=== PATIENT | female | born 1935 | race Caucasian/White ===

== ENCOUNTER 2017-12-02 11:15 | Day surgery (SDC) | payer MEDICARE, BC ==
[2017-11-29 16:08] VITALS: BMI 23.1
[~2017-12-02 11:15] MED LIST: ISOVUE-370 76%-LOCM 1 ML ONE
[2017-12-02] MEDS ORDERED: Lidocaine 1% PF 5 ML VIAL ONE (12:27)
[2017-12-02] MEDS ORDERED: PROPOFOL 200 MG/20 ML VIAL ONE (12:27)
--- NOTE | 2017-12-02 14:22 | OP ---
DATE OF PROCEDURE: 12/02/2017 PROCEDURE: Esophagogastroduodenoscopy and colonoscopy with biopsy and submucosal injection. PREOPERATIVE DIAGNOSIS: Chronic blood loss anemia. OPERATIVE NOTE: Informed consent was obtained from the patient. She was sedated with total intraven ous anesthesia. The bite block was placed and the endoscope was advanced easily to the second portio n of the duodenum and retroflexion was performed in the stomach. The esophagus was normal. The GE j unction was normal. The stomach was normal including retroflexed views. The pylorus and first and s econd portions of the duodenum were normal. The patient was turned around. Rectal exam was performe d and was normal. The colonoscope was advanced to the cecum where the ileocecal valve and appendicea l orifice were clearly identified. The preparation quality was good. There was looping at the hepat ic flexure that made advancement from the ascending colon to the tip of the cecum somewhat challengin g. There was diverticulosis throughout the colon. 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 Th ere was a 1.6 cm ulcer at the distal ascending colon with heaped up edges, it is highly suggestive of a colon cancer. Biopsies were obtained and a tattoo was marked next to the lesion. This was on the proximal side of a large fold in the distal ascending colon that become more apparent as the scope b ecame more retroflexed in the ascending colon. The remainder of the colonic mucosa was normal. Retr oflexed views in the rectum were normal. IMPRESSION: 1. Normal esophagogastroduodenoscopy. 2. A 1.6 cm ulcer in the distal ascending colon with heaped up edges and smooth base consistent with a colon cancer. This was marked with a tattoo and biopsied. 3. Diverticulosis throughout the colon. 4. Melanosis coli throughout the colon. RECOMMENDATIONS: 1. Await histopathology. 2. Follow up in GI clinic.
--- NOTE | 2017-12-02 17:57 | CT ---
CT ABDOMEN AND PELVIS PERFORMED WITH INTRAVENOUS CONTRAST ENHANCEMENT: HISTORY: Right colon mass found on colonoscopy today. History of hernia repair, cholecystectomy, and hysterec roberto. COMPARISON: CT chest from 01/02/2011. FINDINGS: ABDOMEN: The lung bases show mainly chronic lung changes with some subsegmental atelectasis or scarr ing in both bases. There is a large hiatal hernia noted. This exam was obtained in a slightly late arterial phase. The exam was obtained in a slightly late a rterial phase. No definitive solid masses of the liver are seen. There is a small hypodensity, whic h is subcentimeter in size, in the left lobe, statistically most likely a small cyst. The spleen is within normal limits in size. There is a hypodensity involving the body of the pancreas. It measure s 12 to 13 mm. It is partially visualized on the previous 2010 study. It does not appear to be defi nitely changed. The gallbladder has been removed. Right and left adrenal glands and right and left kidneys are normal in size. There is no significant periaortic or mesenteric adenopathy appreciated. Soft tissue density in the right colon could poten tially be related to the history of a mass. This area occurs in the mid ascending colon. There is s ome air density associated with this, presuming this is an area where there has been a biopsy perform ed. There is no free air demonstrated. There is no air within the colon wall. PELVIS: Some colonic diverticulosis is noted. No adenopathy, mass, or free fluid. There is fairly extensive atherosclerotic change of the aorta and iliac vessels. A right hip prosthe sis is noted. No lytic or blastic bony lesions. IMPRESSION: 1. Chronic lung change. 2. Subcentimeter hypodensity in the left lobe of the liver, statistically most likely a small cyst. 3. Stable cystic lesion involving the body of the pancreas, unchanged since the 2011 study. 4. Apparent right colon mass with what appear to be some post biopsy changes. 5. No evidence for metastatic disease. POS: [facility]
== END 2017-12-02 17:15 | disposition home or self-care (01) ==
LOC: SDC 11:15
PROVIDERS: ATTEND Internal Medicine Gastroenterology
PROC: 0DBK8ZX Excision of Ascending Colon, Via Natural or Artificial Opening Endoscopic, Diagnostic (ICD-10-PCS; principal; 2017-12-02)
PROC: 3E0H8GC Introduction of Other Therapeutic Substance into Lower GI, Via Natural or Artificial Opening Endoscopic (ICD-10-PCS; 2017-12-02)
PROC: 0DJ08ZZ Inspection of Upper Intestinal Tract, Via Natural or Artificial Opening Endoscopic (ICD-10-PCS; 2017-12-02)
DX: C18.2 Malignant neoplasm of ascending colon (principal); D63.0 Anemia in neoplastic disease; K57.30 Diverticulosis of large intestine without perforation or abscess without bleeding; K63.89 Other specified diseases of intestine; F17.200 Nicotine dependence, unspecified, uncomplicated; Z88.2 Allergy status to sulfonamides; Z91.040 Latex allergy status; Z98.890 Other specified postprocedural states
CPT/HCPCS: 36415; 74177; 82378; 82565; 88305; J2001; J2704

== ENCOUNTER 2018-01-14 05:49 | Inpatient (IN) | payer MEDICARE, BC ==
[2018-01-14] MEDS ORDERED: Fentanyl 250 MCG/5 ML VIAL ONE (06:33)
[2018-01-14] MEDS ORDERED: Ketorolac Tromethamine 30 MG/ML VIAL ONE (06:36)
[2018-01-14] MEDS ORDERED: cefOXitin 2 GM VIAL ONE (06:36)
[2018-01-14] MEDS ORDERED: Sodium Chloride 0.9% 100 ML ONE (06:41)
[2018-01-14] MEDS ORDERED: Midazolam HCl 2 mg/2 ml Vial ONE (06:49)
[2018-01-14 06:50] LABS: Hemoglobin 10.7 g/dL (12.0-16.0); Red Blood Cell (RBC) Count 3.99 mill/uL (4.20-5.40)
[2018-01-14 06:51] LABS: Mean Corpuscular HGB CONC 33.4 g/dL (32.0-36.0); Mean Corpuscular Hemoglobin 26.8 pg (27.0-31.0); Mean Corpuscular Volume 80.3 fl (81.0-99.0); RBC Distribution Width 17.4 % (11.5-14.5)
[2018-01-14 06:52] LABS: %Lymphocytes 29.9 % (21.0-51.0); %Neutrophils 58.9 % (42.0-75.0); Platelet Count 338 thou/uL (130-400)
[2018-01-14 06:53] LABS: #Lymphocytes 2.1 thou/uL (1.20-3.40); #Neutrophils 4.1 thou/uL (1.40-6.50); %Basophils 0.7 % (0.0-1.0); %Eosinophils 1.5 % (0.0-10.0); %Monocytes 9.1 % (0.0-10.0)
[2018-01-14 06:54] LABS: #Eosinphils 0.1 thou/uL (0.0-0.7); #Monocytes 0.6 thou/uL (0.11-0.59)
[2018-01-14 07:09] LABS: Anion Gap 16 mmol/L (10-20); BUN (Urea Nitrogen) 22 mg/dL (9.8-20.1); Calc. Creatinine Clearance 34 mL/min (70-130); Calcium 9.5 mg/dL (7.8-10.44); Carbon Dioxide 24 mmol/L (23-31); Chloride 101 mmol/L (98-107); Estimated GFR-MDRD 40; Glucose 98 mg/dL (83-110); Potassium 3.8 mmol/L (3.5-5.1); Sodium 137 mmol/L (136-145)
[2018-01-14] MEDS ORDERED: Lidocaine 2% w/Epinephrine 1:200K 20 ML VIAL ONE (07:10)
[2018-01-14 07:51] LABS: Hemoglobin A1c 5.3 % (4.0-6.0)
[2018-01-14] MEDS ORDERED: hydrALAZINE 20 MG/ML VIAL SLOW IVP PRN (10:35)
[2018-01-14] MEDS ORDERED: Ondansetron HCl/PF 4 MG/2 ML Vial IVP PRN (10:35)
[2018-01-14] MEDS ORDERED: Promethazine HCl 25 MG/ML VIAL IM PRN (10:35)
[2018-01-14] MEDS: Ketorolac Tromethamine 30 MG/ML VIAL IVP SCH ×3 (12:13→23:01)
[2018-01-14] MEDS: Acetaminophen 1,000 MG in Premix Bag 1 BAG IVPB SCH ×3 (12:13→23:01)
[2018-01-14] MEDS: D5 1/2 NS w/20 mEq KCL 1,000 ML IV SCH (12:21)
[2018-01-14] MEDS ORDERED: Bupivacaine HCl 0.5%/Epinephrine 1:200,000/PF 30 ml Vial ONE (13:00)
[2018-01-14] MEDS ORDERED: Esmolol 100 MG/10 ML VIAL ONE (13:27)
[2018-01-14] MEDS ORDERED: PROPOFOL 200 MG/20 ML VIAL ONE (13:27)
[2018-01-14] MEDS ORDERED: Lidocaine 1% PF 5 ML VIAL ONE (13:27)
[2018-01-14] MEDS ORDERED: Glycopyrrolate 0.2 MG/ML 5 ML SYRINGE ONE (13:27)
[2018-01-14 15:54] VITALS: BMI 23.8
[2018-01-14] MEDS ORDERED: Melatonin 3 MG TAB PO PRN (16:04)
[2018-01-14] MEDS: Carvedilol 3.125 MG TAB PO SCH (21:30)
[2018-01-14] MEDS: Losartan 25 MG TAB PO SCH (21:30)
[2018-01-14] MEDS: Enoxaparin Sodium 40 MG/0.4 ML SYRINGE SC SCH (21:30)
[2018-01-14] MEDS: Famotidine 20 MG TAB PO SCH (21:30)
[2018-01-14] MEDS: Famotidine/PF 20 mg/2ml Vial SLOW IVP SCH (23:20)
[2018-01-15] MEDS: D5 1/2 NS w/20 mEq KCL 1,000 ML IV SCH ×3 (03:39→17:47)
[2018-01-15 05:00] LABS: #Basophils 0.1 thou/uL (0.0-0.2); #Eosinphils 0.1 thou/uL (0.0-0.7); #Lymphocytes 1.7 thou/uL (1.20-3.40); #Monocytes 0.7 thou/uL (0.11-0.59); #Neutrophils 4.2 thou/uL (1.40-6.50); %Basophils 1.1 % (0.0-1.0); %Eosinophils 1.2 % (0.0-10.0); %Monocytes 9.9 % (0.0-10.0); %Neutrophils 62.8 % (42.0-75.0); Hemoglobin 8.8 g/dL (12.0-16.0); Mean Corpuscular HGB CONC 33.3 g/dL (32.0-36.0); Mean Corpuscular Hemoglobin 26.6 pg (27.0-31.0); Mean Corpuscular Volume 79.7 fL (78.0-98.0); Mean Platelet Volume 6.8 fL (7.4-10.4); Platelet Count 269 thou/uL (130-400); RBC Distribution Width 17.4 % (11.5-14.5); Red Blood Cell (RBC) Count 3.32 mill/uL (4.20-5.40); White Blood Cell (WBC) Count 6.7 thou/uL (4.8-10.8)
[2018-01-15 05:16] LABS: Anion Gap 12 mmol/L (10-20); BUN (Urea Nitrogen) 18 mg/dL (9.8-20.1); Calc. Creatinine Clearance 42 mL/min (70-130); Calcium 8.3 mg/dL (7.8-10.44); Carbon Dioxide 24 mmol/L (23-31); Chloride 103 mmol/L (98-107); Estimated GFR-MDRD 52; Glucose 103 mg/dL (83-110); Sodium 135 mmol/L (136-145)
[2018-01-15] MEDS: Acetaminophen 1,000 MG in Premix Bag 1 BAG IVPB SCH (05:20)
[2018-01-15] MEDS: Ketorolac Tromethamine 30 MG/ML VIAL IVP SCH ×4 (05:20→23:47)
--- NOTE | 2018-01-15 05:57 | OP ---
DATE OF PROCEDURE: 01/14/2018 PREOPERATIVE DIAGNOSIS: Right colon cancer. POSTOPERATIVE DIAGNOSIS: Right colon cancer. OPERATION PERFORMED: Laparoscopic hand-assisted right hemicolectomy. SURGEON: Nima Dupree M.D. ANESTHESIA: General endotracheal. INDICATIONS: The patient is an 82-year-old, white female. She was diagnosed with right colon cancer at the time of recent colonoscopy, and the lesion was tattooed. This is felt to be in the distal as cending colon near the hepatic flexure. She has received cardiac clearance and presents at this time for laparoscopic hemicolectomy. DESCRIPTION OF OPERATION: Informed consent was obtained. The patient was taken to the operating laura m where general endotracheal anesthesia was obtained with the patient in supine position. Abdomen wa s prepped with ChloraPrep and draped in sterile fashion. A tap block had been placed preoperatively by Anesthesia. Local anesthetic was infiltrated and 5 mm left upper abdominal incision was created through which a r victor m was passed via the peritoneal cavity and pneumoperitoneum established using carbon dioxide up to a pressure of 15 mmHg. A 5 mm trocar was passed through this same incision. Laparoscopic camera wa s passed through this port. Under direct vision, an additional 5 mm port was placed in the left lowe r abdomen. The colon was inspected and the area of the tattoo was found in the distal ascending colon close to t he hepatic flexure. A 7 cm oblique right upper quadrant incision was created. Muscle splitting technique was used to gai n access into the abdominal cavity. The Stefan wound retractor was placed along with the GelPort. Attention was turned to the right colon. The ileocolic pedicle was identified, dissected, divided us ing the LigaSure device. Retroperitoneal dissection was carried laterally to the lateral abdominal w all, over the duodenum, up to the proximal transverse colon. I then mobilized the right colon by inc ising the white line of Toldt, fully mobilized the appendix, right colon, hepatic flexure. When the colon was fully mobilized, it was brought extracorporeally through the wound retractor. Segregated instruments were used while the colon was opened. A double stapled [id number] anastomos is created with the DENVER-75 stapler between the distal ileum and the proximal transverse colon. The r esected segment of the colon was then passed off the field. The anastomosis was buttressed with trinity ral interrupted sutures of 3-0 silk. The mesenteric defect was not closed. The colon was returned t o the abdominal cavity. Laparoscopic evaluation was continued, irrigating the area and aspirating al l irrigant. Hemostasis was meticulous. All ports and instruments removed under direct vision. Pneu moperitoneum was carefully evacuated. The right upper quadrant wound was closed in layers using #1 PDS suture in 2 separate layers. The re mainder of the wound was closed with 3-0 and 4-0 Monocryl. The port sites were closed with 4-0 Monoc ryl subcuticular suture. Dermabond was placed externally. There were no complications. Patient doyle erated the procedure well and was taken to recovery room in stable condition.
[2018-01-15] MEDS: Carvedilol 3.125 MG TAB PO SCH ×2 (08:27→21:46)
[2018-01-15] MEDS: Aspirin 81 mg Enteric Coated Tablet PO SCH (08:28)
[2018-01-15] MEDS: Digoxin 0.125 MG TAB PO SCH (08:28)
[2018-01-15] MEDS ORDERED: Levothyroxine Sodium 112 MCG TAB PO SCH (09:00)
[2018-01-15] MEDS: Famotidine 20 MG TAB PO SCH (21:46)
[2018-01-15] MEDS: Famotidine/PF 20 mg/2ml Vial SLOW IVP SCH (21:46)
[2018-01-15] MEDS: Enoxaparin Sodium 40 MG/0.4 ML SYRINGE SC SCH (21:46)
[2018-01-15] MEDS: Losartan 25 MG TAB PO SCH (21:46)
[2018-01-15] MEDS ORDERED: Acetaminophen 500 MG TAB PO PRN (22:29)
[2018-01-15] MEDS ORDERED: traMADol HCl 50 MG TAB PO PRN ×2 (22:29)
[2018-01-15] MEDS ORDERED: Ibuprofen 600 MG TAB PO PRN (22:29)
--- NOTE | 2018-01-16 00:46 | PRG ---
DATE OF SERVICE: 01/15/2018 SUBJECTIVE: Daniel Vaughan is an 82-year-old female status post laparoscopic right colectomy. S he is doing well, tolerating diet, not having any nausea or vomiting. Her labs are normal. OBJECTIVE: VITAL SIGNS: Stable. LUNGS: Clear to auscultation. CARDIAC: Regular rate and rhythm without murmur or gallop. ABDOMEN: Soft, nontender. The patient has had a bowel movement. ASSESSMENT AND PLAN: Doing well after right colectomy. Plan to advance her diet, saline lock her. Plan to probably discharge her home on .
[2018-01-16] MEDS: Ketorolac Tromethamine 30 MG/ML VIAL IVP SCH ×2 (05:34→12:40)
[2018-01-16] MEDS ORDERED: Levothyroxine Sodium 112 MCG TAB PO SCH (06:00)
[2018-01-16] MEDS: Digoxin 0.125 MG TAB PO SCH (08:09)
[2018-01-16] MEDS: Carvedilol 3.125 MG TAB PO SCH (08:09)
[2018-01-16] MEDS: Aspirin 81 mg Enteric Coated Tablet PO SCH (08:09)
[2018-01-16 11:11] VITALS: TEMP 97.4
[2018-01-16 15:27] VITALS: BP 174/76
--- NOTE | 2018-01-16 19:11 | PRG ---
DATE OF SERVICE: 01/16/2018 SUBJECTIVE: Vital signs are stable and afebrile. No labs today. She is tolerating her diet. She h as had a bowel movement. She is not having nausea or vomiting. Pathology reveals T3 N0 M0 tumor. PHYSICAL EXAMINATION: LUNGS: Clear to auscultation. CARDIAC: Regular rate and rhythm without murmur or gallop. ABDOMEN: Soft, nontender. Wounds look good. ASSESSMENT AND PLAN: Doing well post colon resection. We will follow up with Dr. Dupree in a week. An appointment with Oncology has been arranged to discuss her T3 tumor.
== END 2018-01-16 16:27 | disposition home or self-care (01) | DRG 330 ==
LOC: SURG A 05:49 → EDSTATUS 13:07
PROVIDERS: ADMIT Specialist; ATTEND Specialist
PROC: 0DTF0ZZ Resection of Right Large Intestine, Open Approach (ICD-10-PCS; principal; 2018-01-14)
DX: C18.2 Malignant neoplasm of ascending colon (principal); I13.0 Hypertensive heart and chronic kidney disease with heart failure and stage 1 through stage 4 chronic kidney disease, or unspecified chronic kidney disease; I73.9 Peripheral vascular disease, unspecified; I12.9 Hypertensive chronic kidney disease with stage 1 through stage 4 chronic kidney disease, or unspecified chronic kidney disease; N18.3 Chronic kidney disease, stage 3 (moderate); M06.9 Rheumatoid arthritis, unspecified; I48.91 Unspecified atrial fibrillation; I25.10 Atherosclerotic heart disease of native coronary artery without angina pectoris; M19.90 Unspecified osteoarthritis, unspecified site; I50.9 Heart failure, unspecified; I25.2 Old myocardial infarction; Z79.899 Other long term (current) drug therapy; Z90.710 Acquired absence of both cervix and uterus; Z90.49 Acquired absence of other specified parts of digestive tract; F17.210 Nicotine dependence, cigarettes, uncomplicated; Z88.2 Allergy status to sulfonamides; Z79.82 Long term (current) use of aspirin; Z86.73 Personal history of transient ischemic attack (TIA), and cerebral infarction without residual deficits; Z96.651 Presence of right artificial knee joint
CPT/HCPCS: 36415; 36416; 80048; 83036; 85025; 88309; 93005; 93010; J0131; J0360; J0694; J1642; J1650; J1885; J2250; J3010; J7050; J7620